=== PATIENT | male | born 2000 | race Caucasian/White ===

== ENCOUNTER 2024-10-08 03:22 | Emergency (ER) | payer SELFPAY ==
[2024-10-08] MEDS: Ibuprofen 600 MG Tab PO ONE (03:51)
[2024-10-08] MEDS: Clindamycin HCl 150 MG Cap PO ONE (03:52)
== END 2024-10-08 03:55 | disposition home or self-care (01) ==
LOC: EDBD → MW.ED 03:22
DX: K04.7 Periapical abscess without sinus (principal); K02.62 Dental caries on smooth surface penetrating into dentin
CPT/HCPCS: 93005; 99284; A9270